=== PATIENT | male | born 1995 | race Caucasian/White ===

== ENCOUNTER 2017-02-27 02:21 | Emergency (ER) | payer SELFPAY ==
--- NOTE | ~2017-02-27 | ER ---
PATIENT'S NAME: DEBBIE [facility] AGE: 21 Y [address] ROOM: [place] [address] LOCATION: [facility] ADMIT DATE: 02/27/2017 ER/Outpatient Report DISCHARGE DATE: 02/27/2017 FAMILY PHYSICIAN: PHYSICIAN, NO ATTENDING PHYSICIAN: Goldy Payne Time of Arrival: Admission date and time documented on the medical record. Time of Evaluation: I saw the patient at 0245 hours. CHIEF COMPLAINT: Needs medical clearance for chemical dependency treatment at [place], [place]. HISTORY OF PRESENT ILLNESS: This patient is a 21-year-old male, who presented to the emergency room for medical clearance physical exam for chemical dependency treatment at [place], [place]. He is to be at this facility late this afternoon or evening. No recent cough, cold, flus, fever, chills, or sweats. No chest pain or shortness of breath. No abdominal pain, nausea, vomiting, diarrhea, or urinary complaints. No joint or muscle swelling, redness, or pain. No skin eruptions or rash. Does have tattoos on both arms. No history of neural changes other than he did have a brain tumor that was excised at 10 years of age. No sequelae. No endocrine problems or psych issues. HOME MEDICATIONS: None. ALLERGIES: NONE. SOCIAL HISTORY: The patient smokes a half a pack of cigarettes a day. Does drink 1 to 2 beers daily. Does use illicit drugs including opiates and methamphetamine. SIGNIFICANT PAST MEDICAL HISTORY: Brain cancer with brain tumor excision at 10 years of age, tobacco abuse, illicit drug abuse, and alcohol abuse. REVIEW OF SYSTEMS: All systems reviewed by me are negative with the exception of those discussed in the history of present illness. PHYSICAL EXAMINATION: VITAL SIGNS: Temperature 97.9, tympanic; pulse 91; respirations 16; blood pressure 116/61; and O2 saturation on room air is 97%. PATIENT'S NAME: DEBBIE GODINEZ [facility] AGE: 21 Y [address] ROOM: [place] [address] LOCATION: ED ADMIT DATE: 02/27/2017 ER/Outpatient Report DISCHARGE DATE: 02/27/2017 FAMILY PHYSICIAN: PHYSICIAN, NO ATTENDING PHYSICIAN: Goldy Payne HEAD: Normocephalic. No abrasion, contusion, laceration, or swelling of the scalp or face. EYES: Extraocular muscles intact. PERRL. Sclerae and conjunctivae clear, nonicteric. EARS: Clear TMs bilaterally. NOSE: Clear. THROAT: Mucous membranes moist. The patient has poor dentition with multiple decayed teeth. NECK: No nuchal rigidity. No thyromegaly or cervical adenopathy. SPINE: Nontender. No deformity. LUNGS: Clear. Good air flow. No rales, rhonchi, or wheezes. HEART: Regular. Pulses are palpable. No chest wall or ribcage pain to palpation. ABDOMEN: Soft, nondistended, nontender. Good bowel tones. No organomegaly or abnormal mass palpable. No CVA tenderness. EXTREMITIES: No peripheral edema, cyanosis, or deformity. NEURO: Cranial nerves intact. No lateralizing sign. The patient is awake, cooperative. Motor and sensory intact. SKIN: Clear. He has tattoos on his right and left arm. Otherwise, no acute rashes. IMPRESSION: Medical clearance physical exam, chemical dependency program at [place], [place]. PLAN: Forms were filled out, forms signed. The patient discharged from the emergency department. MD MATTEO ALMANZA/modl /[id number] d: 02/27/17 0529 t: 03/01/17 0612, OUTPATIENT REPORT
== END 2017-02-27 03:13 | disposition disaster alternative care site (69) ==
LOC: GMED 02:21
DX: Z02.89 Encounter for other administrative examinations (principal); F17.210 Nicotine dependence, cigarettes, uncomplicated; F11.10 Opioid abuse, uncomplicated; F10.10 Alcohol abuse, uncomplicated; Z98.890 Other specified postprocedural states